=== PATIENT | male | born 1935 | race Caucasian/White ===

== ENCOUNTER → 2017-08-10 | Outpatient (CLI) | payer BC ==
[~2017-08-10] MED LIST: ASPEC81 PO; ATOR10TA82 PO; CARB25TA12 PO; CHOL100010 PO; CLX/20 PO; CRDCD120 PO; CYAN100020 PO; MULT-190 PO; MULT-506 PO; NAPR1TAB48 PO; PRLSR20 PO; PSYL55.43 PO; [UNRECOGNIZED DRUG - CODE] PO
== END | disposition home or self-care (01) ==
LOC: C.LAB 09:44
PROVIDERS: ATTEND Urology
DX: C61 Malignant neoplasm of prostate (principal)

== ENCOUNTER → 2017-10-20 | Outpatient (CLI) | payer BC ==
--- NOTE | 2017-10-20 09:10 | DIAGNOSTIC IMAGING REPORT ---
ULTRASOUND RIGHT UPPER QUADRANT ABDOMEN CLINICAL HISTORY: Weight loss. Abdominal pain. COMPARISON STUDY: No priors. TECHNIQUE: Real-time, grayscale, and color flow sonography of the right upper quadrant of the abdomen was performed. Images are reviewed in the transverse and longitudinal planes. FINDINGS: Liver: The liver is normal in size and echotexture. There is no intrahepatic biliary ductal dilatation. The main portal vein is patent. Scattered hepatic cysts measure up to 1.5 cm. Gallbladder: The gallbladder is normal in appearance. No gallstones are identified. There is no gallbladder wall thickening or pericholecystic fluid. A sonographic Gross's sign is reportedly absent. The common bile duct measures up to 0.4 cm in diameter. Pancreas: Visualized portions of the pancreatic head and body are normal in appearance. Right kidney: Survey images of the right kidney demonstrate normal size and echotexture. There is no hydronephrosis. A 2.1 cm cyst is incidentally noted. Spleen: The spleen is top normal in size and homogeneous in echotexture, measuring 13.0 cm in length. Ascites: None. IMPRESSION: Unremarkable sonographic assessment of the right upper quadrant. No gallstones are identified. Electronically signed by: Vu Leung M.D. 10/20/2017 9:09 AM Dictated Date/Time: 10/20/2017 9:06 AM
== END | disposition home or self-care (01) ==
LOC: C.ULTRBC 08:16
PROVIDERS: ATTEND Family Medicine
DX: R10.9 Unspecified abdominal pain (principal); R63.4 Abnormal weight loss

== ENCOUNTER 2019-02-03 07:17 | Inpatient (IN) ==
--- NOTE | 2019-01-02 09:14 | PAT Medication Instructions ---
Medication Instructions Date of Service January 02, 2019 Home Medications C,E,zinc,copper [id number] [Ocuvite Adult 50 Plus] 1 cap PO BID aspirin 81 mg PO QDL carbidopa-levodopa 2 tab PO QID cholecalciferol (vitamin D3) [Vitamin D3] 2,000 unit PO QDL citalopram 20 mg PO HS donepezil 10 mg PO HS irbesartan 150 mg PO QAM memantine 10 mg PO BID naproxen 375 mg PO Q8H NEEDED polyethylene glycol 3350 [Miralax] 17 g PO QDL ASK your surgeon for instructions aspirin 81 mg PO QDL naproxen 375 mg PO Q8H NEEDED STOP taking 2 weeks before surgery C,E,zinc,copper [id number] [Ocuvite Adult 50 Plus] 1 cap PO BID DO NOT take the morning of surgery cholecalciferol (vitamin D3) [Vitamin D3] 2,000 unit PO QDL irbesartan 150 mg PO QAM polyethylene glycol 3350 [Miralax] 17 g PO QDL Take morning of surgery With a small sip of water, OTHERWISE NOTHING TO EAT OR DRINK AFTER MIDNIGHT: carbidopa-levodopa 2 tab PO QID memantine 10 mg PO BID Take evening before surgery citalopram 20 mg PO HS donepezil 10 mg PO HS carbidopa-levodopa 2 tab PO QID memantine 10 mg PO BID Other Notes If you have any questions please call us at [phone] or [phone] or [phone] or [phone]
--- NOTE | 2019-01-02 11:37 | Anesthesiology Consultation ---
Date of Service January 02, 2019 Assessment & Plan (1) Encounter for pre-operative examination: Chart Review Chart Review: Acceptable Risk for Surgery and Patient seen in Pre Admission Testing Consults Requested none Teaching & Discussion Pre-Anesthesia Teaching/Discussion Notes: Instructed NPO after midnight before surgery, except medications with 15 cc of water. Medication instructions provided according to the PAT guidelines. History Surgery Operation Date: 02/03/19 10:40 Proposed Procedures p Left Total Shoulder Arthroplasty - Carrington Edwards DO Height/Weight Height: 6 ft 2 in Weight: 86 kg Allergies Allergy/AdvReac Type Severity Reaction Status Date / Time metronidazole Allergy Intermediate HIVES Verified 01/02/19 15:08 minocycline Allergy Mild Rash Verified 01/02/19 15:08 oxycodone AdvReac Mild WEIRD Verified 01/02/19 15:08 THOUGHTS/DREAMS;GI UPSET Tetracyclines AdvReac Mild ABD CRAMPS Verified 01/02/19 15:08 & DIARRHEA, LEUKOPENIA Medications Home Medications Medication Instructions Recorded Confirmed Last Taken C,E,zinc,copper [id number] 1 cap PO BID 10/13/18 01/02/19 10/13/18 [Ocuvite Adult 50 Plus] aspirin 81 mg PO QDL 10/13/18 01/02/19 10/13/18 carbidopa-levodopa 2 tab PO QID 10/13/18 01/02/19 10/13/18 cholecalciferol (vitamin D3) 2,000 unit PO QDL 10/13/18 01/02/19 10/13/18 [Vitamin D3] citalopram 20 mg PO HS 10/13/18 01/02/19 10/12/18 donepezil 10 mg PO HS 10/13/18 01/02/19 10/12/18 memantine 10 mg PO QAM 10/13/18 01/02/19 10/13/18 naproxen 375 mg PO BID 10/13/18 01/02/19 Unknown polyethylene glycol 3350 [Miralax] 17 g PO QDL PRN 12/26/18 01/02/19 Unknown irbesartan 150 mg PO QAM 01/02/19 01/02/19 Unknown Past Medical History Medical History Parkinson's disease BALANCE ISSUES Hypertension Lumbar stenosis with neurogenic claudication (05/15/14) Anxiety Depression History of prostate cancer TREATED WITH RADIATION - 11YR AGO Macular degeneration Osteoarthritis Exercise / Class Metabolic Activity III < 4 Walking/Shop/Light housework (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 Can walk short distances only because legs get tired. Denies CP or SOB. Can walk up stairs, but doesn't often because it tires his muscles ou t and fatigues him greatly. ) Past Family History Family History Aunt Family history of diabetes mellitus Other No family history of adverse response to anesthesia Past Surgical History Surgical History History of knee replacement RIGHT AND LEFT H/O right inguinal hernia repair 03/13/13: LMA #4 09/02/11: MAC#3, ETT#8.0, Grade 1 View History of back surgery X3 08/12/15: L5-S1 Laminectomy: MAC#3, ETT#7.5, Grade 2 View 05/15/14: L5-S1 Hemilaminectomy: MAC #3, ETT#8.0, HiLo Oral, Grade 1 View 10/24/09: L4-5 Hemilaminectomy: Piedra, ETT#8.0, Grade 1 View History of colonoscopy History of repair of hiatal hernia X3 Hx of cosmetic surgery LIPOMA FOREHEAD Hx of foot surgery RIGHT Hx of shoulder replacement RIGHT Past Anesthesia History No Hx of Anesthesia Complications and No Family Hx of Anesthesia Complications History of PONV No Hx of PONV and No Hx of Motion Sickness Social History Smoking Status: Former smoker Do You Dip or Chew Tobacco: No Smoking End Date: 1971 Hx Alcohol Use: No Hx Substance Use: No Review of Systems Patient denies chest pain, shortness of breath, dyspnea on exertion, reflux, co ugh, wheezing, palpitations. +Joint Pain (Lower back, shoulder) Physical Exam Vital Signs BP: 171/83 P: 60 R: 16 T: 98.1 SPO2: 100% on RA ENMT Thyromental Distance: > or= 3.5 Finger Breadths (4) Mallampati Class: I Neck normal visual inspection and trachea midline; neck extension not limited Respiratory normal respiratory effort Auscultation: lungs clear to auscultation bilaterally Cardiovascular Rate/Rhythm: regular rate and regular rhythm Heart Sounds: no murmur Vessels: no carotid bruit Neurologic moves all extremities Psychiatric Orientation: alert and oriented x 3 Testing Laboratory Results 01/02/19 12:29 01/02/19 12: PT 11.0 Seconds (9.0-12.0) 01/02/19 12: INR 1.1 (0.9-1.1) 01/02/19 12: APTT 31.2 Seconds (21.0-31.0) H 01/02/19 12:29 Urine Color Yellow 01/02/19 12:29 Urine Appearance Clear (Clear) 01/02/19 12:29 Urine pH 6.5 (4.5-7.5) 01/02/19 12: Ur Specific [place] 1.017 (1.000-1.030) 01/02/19 12:29 Urine Protein Negative (Negative) 01/02/19 12: Urine Glucose (UA) Negative (Negative) 01/02/19 12: Urine Ketones Negative (Negative) 01/02/19 12: Urine Nitrite Negative (Negative) 01/02/19 12:29 Ur Leukocyte Esterase Negative (Negative) 01/02/19 12:29 Electrocardiogram Date: 10/13/18 Findings: + NSR @ (61) and + no change from (08/07/15) Sinus arrhythmia Nonspecific ST and T wave abnormality Chest X-Ray Date: 10/13/18 FINDINGS: Right shoulder arthroplasty is incidentally noted. There is no pneumothorax or pleural effusion. Cardiac mediastinal silhouette is stable. There is no consolidation or evidence for pulmonary edema. The appearance of the chest is unchanged. No acute left rib fractures are identified although sensitivity is diminished given this technique. IMPRESSION: No acute cardiopulmonary findings.
[2019-01-02 15:18] LABS: Basophils # (auto) 0.02 K/uL (0-0.2); Basophils % (auto) 0.4 %; Eosinophils # (auto) 0.16 K/uL (0-0.5); Eosinophils % (auto) 3.1 %; Hematocrit (blood only) 41.6 % (42-52); Hemoglobin 13.5 g/dL (14.0-18.0); Immature Granulocytes # (auto) 0.01 K/uL (0.00-0.02); Immature Granulocytes % (auto) 0.2 %; Lymphocytes # (auto) 0.76 K/uL (1.2-3.4); Lymphocytes % (auto) 14.6 %; Mean Corpuscular Hemoglobin 28.5 pg (25-34); Mean Corpuscular Hgb Conc 32.5 g/dL (32-36); Mean Corpuscular Volume 87.8 fL (80-100); Mean Platelet Volume 9.6 fL (7.4-10.4); Monocytes # (auto) 0.55 K/uL (0.11-0.59); Monocytes % (auto) 10.5 %; Neutrophils # (auto) 3.72 K/uL (1.4-6.5); Neutrophils % (auto) 71.2 %; Platelet Count 153 K/uL (130-400); RDW Standard Deviation 45.4 fL (36.4-46.3); Red Blood Count 4.74 M/uL (4.7-6.1); White Blood Count 5.22 K/uL (4.8-10.8)
[2019-01-02 15:26] LABS: BUN Creatinine Ratio 19.3 (10-20); Calcium 9.4 mg/dl (8.5-10.1); Creatinine Clr Calc Pharmacy 64.8 ml/min; Est GFR (African American) 77.7; Potassium 4.3 mmol/L (3.5-5.1)
[2019-01-02 15:29] LABS: Appearance Urine Clear (Clear); Bilirubin Urine Negative (Negative); Blood Urine Negative (Negative); Color Urine Yellow; Glucose Urine UA Negative (Negative); Ketones Urine Negative (Negative); Leukocyte Esterase Urine Negative (Negative); Nitrite Urine Negative (Negative); Protein Urine Negative (Negative); Specific Gravity Urine 1.017 (1.000-1.030); Urobilinogen Urine Negative (Negative); pH Urine 6.5 (4.5-7.5)
[2019-01-02 15:35] LABS: INR 1.1 (0.9-1.1); Partial Thromboplastin Ratio 1.2; Partial Thromboplastin Time 31.2 Seconds (21.0-31.0)
--- NOTE | 2019-02-03 06:56 | History & Physical Report ---
Date of Service February 03, 2019 Assessment & Plan (1) Osteoarthritis of left shoulder: We will proceed with a left total shoulder arthroplasty. Postoperatively he will be kept overnight in the hospital for postop medical management. He plans to use energy physical therapy upon discharge. Present on Admission?: Yes History of Present Illness Chief Complaint: Primary osteoarthritis of the left shoulder Primary Care Provider: Mike Rose MD Jean is a pleasant 83-year-old male who has been dealing with chronic increasing left shoulder pain. X-rays and clinical examination have been diagnostic for advanced osteoarthritis of the left shoulder. After failing conservative treatment, he has elected to proceed with a left total shoulder arthroplasty. Allergies Allergy/AdvReac Type Severity Reaction Status Date / Time metronidazole Allergy Intermediate HIVES Verified 01/13/19 12:59 minocycline Allergy Mild Rash Verified 01/13/19 12:59 azithromycin [From Zithromax] Allergy Verified 01/25/19 14:18 ketoconazole Allergy Verified 01/25/19 14:18 vardenafil [From Levitra] Allergy Verified 01/25/19 14:18 oxycodone AdvReac Mild WEIRD Verified 01/13/19 12:59 THOUGHTS/DREAMS;GI UPSET Tetracyclines AdvReac Mild ABD CRAMPS Verified 01/13/19 12:59 & DIARRHEA, LEUKOPENIA Home Medications Home Medications Medication Instructions Recorded Confirmed Type Ocuvite Adult 50 Plus 1 cap PO BID 10/13/18 01/13/19 History aspirin 81 mg PO QDL 10/13/18 01/13/19 History cholecalciferol (vitamin D3) 2,000 unit PO QDL 10/13/18 01/13/19 History [Vitamin D3] citalopram 20 mg PO HS 10/13/18 01/13/19 History donepezil 10 mg PO HS 10/13/18 01/13/19 History memantine 10 mg PO QAM 10/13/18 01/13/19 History naproxen 375 mg PO BID 10/13/18 01/13/19 History polyethylene glycol 3350 [Miralax] 17 g PO QDL PRN 12/26/18 01/13/19 History irbesartan 150 mg PO QAM 01/02/19 01/13/19 History atorvastatin 10 mg tablet 10 mg PO DAILY tab 01/25/19 01/25/19 History carbidopa 25 mg-levodopa 100 mg 2 tab PO QID 30 Days #240 tab 01/25/19 01/25/19 Rx tablet diltiazem 120 mg tablet PO .Take 1 tablet daily tab 01/25/19 01/25/19 History psyllium PO 01/25/19 01/25/19 History tamsulosin 0.4 mg capsule 0.4 mg PO DAILY #30 cap 01/25/19 01/25/19 History Past Med/Surg History Medical History Parkinson's disease BALANCE ISSUES Hypertension Lumbar stenosis with neurogenic claudication (05/15/14) Anxiety Depression History of prostate cancer TREATED WITH RADIATION - 11YR AGO Macular degeneration Osteoarthritis Surgical History History of knee replacement RIGHT AND LEFT H/O Mohs micrographic surgery for skin cancer forehead left side H/O right inguinal hernia repair 03/13/13: LMA #4 09/02/11: MAC#3, ETT#8.0, Grade 1 View History of back surgery X3 08/12/15: L5-S1 Laminectomy: MAC#3, ETT#7.5, Grade 2 View 05/15/14: L5-S1 Hemilaminectomy: MAC #3, ETT#8.0, HiLo Oral, Grade 1 View 10/24/09: L4-5 Hemilaminectomy: Piedra, ETT#8.0, Grade 1 View History of colonoscopy History of repair of hiatal hernia X3 Hx of cataract surgery Hx of cosmetic surgery LIPOMA FOREHEAD Hx of foot surgery RIGHT Hx of shoulder replacement RIGHT S/P nasal septoplasty Family History Aunt Family history of diabetes mellitus Father Prostate cancer Meningitis Bone cancer Mother Heart disease Congestive heart failure Brother Skin cancer Heart disease Malignant tumor of optic nerve Other Hypertension No family history of adverse response to anesthesia Social History Preferred Language: Slovak Communication Ability: Effective Mining Consultant Required: No Beliefs That Will Affect Care: None marital status: Current Living Situation: Spouse Other Information That Helps Us Care for You: No Feels Safe at Home: Yes Safety Concerns: Feels Safe At This Time Smoking Status: Former smoker Do You Dip or Chew Tobacco: No ; Smoking End Date: quit 1971 ; Second Hand Exposure: No ; Tobacco Cessation Education Requested by Patient: No Hx Alcohol Use: No Hx Substance Use: No Review of Systems All systems reviewed & are unremarkable except as noted in HPI & below Physical Exam Constitutional: WD/WN, vitals as above Eyes: PERRL, conjunctivae normal, anicteric sclerae ENMT: external ear and nose normal, oropharynx normal Neck: trachea midline, no thyromegaly Respiratory: normal respiratory effort Cardiovascular: RRR, no murmur, no edema Gastrointestinal (Abdomen): normal bowel sounds, soft, nontender, no hepatosplenomegaly Musculoskeletal: Physical examination of the left shoulder reveals decreased range of motion and crepitis throughout. There is good strength with full can testing and external rotation. There is tenderness palpation along the anterior glenohumeral joint line. The right upper extremity is neurovascularly intact. Psychiatric: A+Ox3, euthymic affect Results & Data Diagnostic Findings Radiographs of the left shoulder show osteoarthritis of the glenohumeral joint. There is joint space narrowing, osteophyte formation, and [id number] articulation.
[~2019-02-03 07:17] MED LIST changes: +ACETAMINOPHEN 500 MG TAB PO SCH; -ASPEC81 PO; -ATOR10TA82 PO; +BUPIVACAINE 0.5 % 5 MG/1 ML PF 10ML VIAL ONE; -CARB25TA12 PO; +CEFAZOLIN 2000MG 2,000 MG/15 ML SYR IV SCH; -CHOL100010 PO; -CLX/20 PO; -CRDCD120 PO; -CYAN100020 PO; +FAMOTIDINE 20 MG TAB PO SCH; +GABAPENTIN 300 MG CAP PO SCH; +LR 15ML/HR IV SCH; +LR 60ML/HR IV SCH; -MULT-190 PO; -MULT-506 PO; -NAPR1TAB48 PO; -PRLSR20 PO; -PSYL55.43 PO; +ROPIVACAINE 0.5% HCL/PF 150 MG, BUPIVACAINE 0.5% MPF 30 ML, EPINEPHrine 30MG/30ML (OR U... INSTIL SCH; +TRANEXAMIC ACID 1,000 MG **IV Intra-op IV SCH; +TRANEXAMIC ACID 1,000 MG **IV Pre-op IV SCH; -[UNRECOGNIZED DRUG - CODE] PO
--- NOTE | 2019-02-03 09:14 | History & Physical Bridge Note ---
Date of Service February 03, 2019 History & Physical Bridge Note I have examined the patient, reviewed the History & Physical and in the interval since the performance of the History & Physical I have noted the following changes of clinical significance: no changes noted
[2019-02-03] MEDS ORDERED: ORTHO JOINT ANESTHETIC ONE (09:45)
[2019-02-03] MEDS ORDERED: LIDOCAINE HCL 2% 2 ML VIAL/AMP(20MG/ML) INFIL ONE (09:55)
[2019-02-03] MEDS ORDERED: fentaNYL citrate 100 MCG/2 ML VIAL ONE (09:55)
[2019-02-03] MEDS ORDERED: ROCURONIUM BROMIDE 10 MG/ML 5 ML VIAL ONE (09:55)
[2019-02-03] MEDS ORDERED: MIDAZOLAM HCL 1 MG/ML 2ML VIAL ONE (09:55)
[2019-02-03] MEDS ORDERED: PROPOFOL IV EMULSION 10 MG/ML 20 ML VIAL IV ONE (09:55)
[2019-02-03] MEDS ORDERED: ePHEDrine sulfate 50 MG/ML AMP IV PRN (10:44)
[2019-02-03] MEDS ORDERED: ATROPINE SULFATE 0.1 MG/ML 10ML SYR IV PRN (10:44)
[2019-02-03] MEDS ORDERED: ONDANSETRON INJ 2 MG/ML 2 ML VIAL IV PRN ×2 (10:44→14:09)
[2019-02-03] MEDS ORDERED: fentaNYL citrate 100 MCG/2 ML VIAL IV PRN (10:44)
--- NOTE | 2019-02-03 10:44 | Anesthesiology Consultation ---
Date of Service February 03, 2019 parkinsons htn raymon prostate ca Assessment & Plan (1) Encounter for pre-operative examination: Chart Review Chart Review: Acceptable Risk for Surgery and Patient NOT seen in Pre Admission Testing Consults Requested none ASA ASA3 Proposed Anesthesia Anesthesia Type: General Regional Laterality: Left Site: Interscalene Risk / Benefits Reviewed With: PT / POA / Parent / Guardian, Accepts Plan and Informed Consent Obtained History Surgery Operation Date: 02/03/19 09:55 Proposed Procedures p Left Total Shoulder Arthroplasty - Carrington Edwards DO Height/Weight Height: 6 ft 2 in Weight: 84.55 kg Allergies Allergy/AdvReac Type Severity Reaction Status Date / Time metronidazole Allergy Intermediate HIVES Verified 02/03/19 08:01 minocycline Allergy Mild Rash Verified 02/03/19 08:01 azithromycin [From Zithromax] Allergy Unknown unsure Verified 02/03/19 08:01 ketoconazole Allergy Unknown unsure Verified 02/03/19 08:01 vardenafil [From Levitra] Allergy Unknown Verified 02/03/19 08:01 oxycodone AdvReac Mild WEIRD Verified 02/03/19 08:01 THOUGHTS/DREAMS;GI UPSET Tetracyclines AdvReac Mild ABD CRAMPS Verified 02/03/19 08:01 & DIARRHEA, LEUKOPENIA Medications Home Medications Medication Instructions Recorded Confirmed Last Taken Ocuvite Adult 50 Plus 1 cap PO BID 10/13/18 02/03/19 01/29/19 08:00 aspirin 81 mg PO QDL 10/13/18 02/03/19 01/29/19 12:00 cholecalciferol (vitamin D3) 2,000 unit PO QDL 10/13/18 02/03/19 01/29/19 08:00 [Vitamin D3] citalopram 20 mg PO HS 10/13/18 02/03/19 02/02/19 19:00 donepezil 10 mg PO HS 10/13/18 02/03/19 02/02/19 19:00 memantine 10 mg PO QAM 10/13/18 02/03/19 02/03/19 06:00 naproxen 375 mg PO BID 10/13/18 02/03/19 01/29/19 08:00 polyethylene glycol 3350 [Miralax] 17 g PO QDL PRN 12/26/18 02/03/1919 10:00 irbesartan 150 mg PO QAM 01/02/19 02/03/19 02/01/19 08:00 atorvastatin 10 mg tablet 10 mg PO DAILY tab 01/25/19 02/03/19 02/01/19 08:00 carbidopa 25 mg-levodopa 100 mg 2 tab PO QID 30 Days #240 tab 01/25/19 02/03/19 02/03/19 06:00 tablet diltiazem 120 mg tablet 120 mg PO DAILY tab 01/25/19 02/03/19 02/02/19 08:00 Active Medications Generic Name Dose Route Start Last Admin Trade Name Minnie PRN Reason Stop Dose Admin Acetaminophen 1,000 mg 02/03/19 06:00 02/03/19 08:46 Tylenol PO 02/03/19 18:00 1,000 mg PREOP INDIA Administration Famotidine 20 mg 02/03/19 06:00 02/03/19 08:46 Pepcid PO 02/03/19 18:00 20 mg PREOP [place] Administration Gabapentin 300 mg 02/03/19 06:00 02/03/19 08:46 Neurontin PO 02/03/19 18:00 300 mg PREOP [place] Administration Lactated Ringer's 1,000 mls @ 15 mls/hr 02/03/19 06:00 02/03/19 08:04 Lr IV 02/04/19 05:59 15 mls/hr .Q24H INDIA Administration Lactated Ringer's 1,000 mls @ 60 mls/hr 02/03/19 06:00 02/03/19 08:05 Lr IV 02/03/19 22:39 Not Given .[id number] INDIA NPO Date Last Intake of Fluids: 02/02/19 Time Last Intake of Fluids: 22:00 Last Intake of Fluids Comment: sip with meds this am Date Last Intake of Solids: 02/02/19 Time Last Intake of Solids: 19:00 Past Medical History Medical History Parkinson's disease BALANCE ISSUES Hypertension Lumbar stenosis with neurogenic claudication (05/15/14) Acid reflux (Acute) Anxiety Depression History of prostate cancer TREATED WITH RADIATION - 11YR AGO Macular degeneration Osteoarthritis Exercise / Class Metabolic Activity II 4-5 Yardwork/Stairs/Walk up hill Past Family History Family History Aunt Family history of diabetes mellitus Father Prostate cancer Meningitis Bone cancer Mother Heart disease Congestive heart failure Brother Skin cancer Heart disease Malignant tumor of optic nerve Other Hypertension No family history of adverse response to anesthesia Past Surgical History Surgical History History of knee replacement RIGHT AND LEFT History of back surgery X3 08/12/15: L5-S1 Laminectomy: MAC#3, ETT#7.5, Grade 2 View 05/15/14: L5-S1 Hemilaminectomy: MAC #3, ETT#8.0, HiLo Oral, Grade 1 View 10/24/09: L4-5 Hemilaminectomy: Piedra, ETT#8.0, Grade 1 View History of repair of hiatal hernia X3 Hx of cosmetic surgery LIPOMA FOREHEAD Hx of foot surgery RIGHT Hx of shoulder replacement RIGHT H/O Mohs micrographic surgery for skin cancer forehead left side H/O right inguinal hernia repair 03/13/13: LMA #4 09/02/11: MAC#3, ETT#8.0, Grade 1 View History of colonoscopy Hx of cataract surgery S/P nasal septoplasty Past Anesthesia History No Hx of Anesthesia Complications and No Family Hx of Anesthesia Complications History of PONV No Hx of PONV and No Hx of Motion Sickness Social History Smoking Status: Former smoker Do You Dip or Chew Tobacco: No Smoking End Date: 1971 Hx Alcohol Use: No Hx Substance Use: No substance use type: does not use Physical Exam Vital Signs Last Vital Signs Temp 36.6 C 02/03/19 08:06 Pulse 69 02/03/19 08:06 Resp 20 02/03/19 08:06 BP 169/96 H 02/03/19 08:06 Pulse Ox 98 02/03/19 08:06 ENMT Mouth: no dentition abnormality Thyromental Distance: > or= 3.5 Finger Breadths Mallampati Class: II Neck normal visual inspection Respiratory normal respiratory effort Auscultation: lungs clear to auscultation bilaterally Cardiovascular Rate/Rhythm: regular rate and regular rhythm Psychiatric Orientation: alert Testing Laboratory Results 01/02/19 12:29 01/02/19 12:29 PT 11.0 Seconds (9.0-12.0) 01/02/19 12:29 INR 1.1 (0.9-1.1) 01/02/19 12:29 APTT 31.2 Seconds (21.0-31.0) H 01/02/19 12:29 Urine Color Yellow 01/02/19 12:29 Urine Appearance Clear (Clear) 01/02/19 12:29 Urine pH 6.5 (4.5-7.5) 01/02/19 12:29 Ur Specific [place] 1.017 (1.000-1.030) 01/02/19 12:29 Urine Protein Negative (Negative) 01/02/19 12:29 Urine Glucose (UA) Negative (Negative) 01/02/19 12:29 Urine Ketones Negative (Negative) 01/02/19 12:29 Urine Nitrite Negative (Negative) 01/02/19 12:29 Ur Leukocyte Esterase Negative (Negative) 01/02/19 12:29 Blood Type O Positive 01/02/19 12:29 Antibody Screen NEGATIVE 01/02/19 12:29
[2019-02-03] MEDS ORDERED: HydrALAZINE HCL 20 MG/ML VIAL ONE (11:39)
--- NOTE | 2019-02-03 12:39 | Operative Report ---
Post Operative Report Pre & Post Diagnosis Operation Date: 02/03/19 09:55 Pre-Op Diagnosis: Left Shoulder Degenerative Joint Disease Post-Op Diagnosis: Left Shoulder Degenerative Joint Disease with rotator cuff tear Procedure Operation Date: 02/03/19 09:55 Actual Procedures p Left Reverse Total Shoulder Arthroplasty(Left) - Carrington Edwards DO Surgeon Carrington Edwards DO Heel Packer Carrington Ferreira PAC Estimated Blood Loss 300 Findings Consistent with Post-Op Diagnosis Specimens Left humeral head Complications none Disposition Disposition: Recovery Room Indications Jean cox a pleasant 83-year-old male presented my office with chronic increasing left shoulder pain. X-rays and clinical examination were diagnostic for advanced osteoarthritis of left shoulder. After failing conservative treatment, he elected to proceed with a left shoulder arthroplasty. Description of Procedure Implants used: I used a [employer] Comprehensive reverse total shoulder arthroplasty system with a size 17 press fit mini humeral stem, a +3 offset humeral tray and a standard humeral bearing, a standard baseplate with a 6.5 mm central screw and superior and inferior locking screws, and a size 40 mm +3 eccentric glenosphere. The patient arrived at [facility] for the above procedure. There were seen in the preoperative holding area and the operative extremity was identified and signed. They were given a preoperative antibiotic and an interscalene nerve block. They were taken back to the operating room, laid on table in supine position, and put under general anesthesia. They were then put into the beachchair position. The shoulder was then prepped and draped in sterile fashion. A timeout was done and the patient in the operative extremity was properly identified. A deltopectoral approach was used. Dissection was taken down through the fascia and the deltoid was retracted laterally and the conjoined tendon was retracted medially. The anterior shoulder was exposed. The long head of the biceps tendon was tenodesed to the upper border of the pectoralis major. The upper border the subscapularis was torn and retracted. There was also significant partial-thickness tearing of the supraspinatus and infraspinatus. Decision was made at this time to do a reverse shoulder arthroplasty. The remainder of the subscapularis was then released off the lesser tuberosity with a centimeter of cuff tissue remaining. The inferior capsule was released and the humeral head was dislocated. A canal finding reamer was sent down the center of the humeral canal. Sequential reaming up to a size 17 reamer was done. Off that reamer, a proximal humeral resection guide was placed. The proximal humerus was resected at 135 of inclination and 25 of retroversion. Osteophytes were then removed and the glenoid was exposed. Time was spent doing a complete capsular and labral release. A [employer] signature guide was then attached onto the anterior rim of the glenoid. A 3.2 mm Steinmann pin was then placed in the reverse total shoulder arthroplasty hole. The glenoid baseplate was then reamed. The final size standard baseplate was then impacted in the place. A 6.5 mm central screw was then placed followed by superior and inferior locking screws. A 40 mm +3 eccentric glenoid sphere was then impacted into place. Surrounding soft tissues were then injected with 100 cc an orthopedic pain control cocktail. The proximal humerus was then exposed. Sequential broaching of the humerus up to a size 17 broach was done. Off that broach a +3 offset humeral tray was trialed. The shoulder was then reduced, brought through a full range of motion and felt to be stable. The shoulder was then dislocated and the broach was removed. The final size 17 mini press-fit humeral stem was then impacted into place. A standard humeral bearing was then snapped onto a +3 standard offset humeral tray and the ring-lock mechanism was engaged. The humeral tray was then impacted onto the humeral stem. The shoulder was once again reduced, brought through a full range of motion and felt to be stable. The remainder of the subscapularis was then tenodesed back to the lesser tuberosity with transosseous FiberWire sutures and side to side sutures with the arm in 45 of external rotation. A dilute betadyne lavage was then done for 3 minutes. The joint was then irrigated with normal saline solution. Hemostasis was obtained. The skin was then closed with 2-0 Vicryl, 3-0V lock suture, and alka. A soft dressing and a regular arm sling was placed. The patient was then extubated and transferred to a hospital bed. They were taken to the postanesthesia care unit in stable condition. They tolerated the procedure well. I attest to the content of the Intraoperative Record and any orders documented therein. Any exceptions are noted below.
[2019-02-03] MEDS ORDERED: GLYCOPYRROLATE 0.2 MG/ML VIAL ONE (13:18)
[2019-02-03] MEDS ORDERED: DEXAMETHASONE SOD INJ 4 MG/ML VIAL ONE (13:18)
[2019-02-03] MEDS ORDERED: NEOSTIGMINE METHYLSULFATE 5 MG/5 ML SYR ONE (13:18)
[2019-02-03] MEDS ORDERED: ONDANSETRON INJ 2 MG/ML 2 ML VIAL ONE (13:18)
--- NOTE | 2019-02-03 13:40 | XRay Report ---
XR shoulder LT min 2V routine CLINICAL HISTORY: Post shoulder surgery postoperative COMPARISON: None. DISCUSSION: Anatomic alignment posttotal left shoulder arthroplasty. Could contact between prosthetic and underlying bone. Expected soft tissue postoperative change. IMPRESSION: Anatomic alignment posttotal left shoulder arthroplasty. The above report was generated using voice recognition software. It may contain grammatical, syntax or spelling errors. Electronically signed by: Samuel Hoang M.D. 02/03/2019 1:38 PM
--- NOTE | 2019-02-03 13:57 | Anesthesiology Progress Note ---
Date of Service February 03, 2019 Anesthesia Post Procedure Vital Signs Vital Signs: Temp Pulse Pulse Resp BP Pulse Ox 02/03/19 13:35 36.1 C L 75 16 131/78 94 02/03/19 13:25 77 16 124/72 93 02/03/19 13:15 82 16 120/70 97 02/03/19 13:06 36.1 C L 84 16 165/91 H 99 02/03/19 08:06 36.6 C 69 20 169/96 H 98 Pain Intensity Left Shoulder: Pain Intensity: 5 Transfer of Care Handoff Completed per policy Notes Mental Status: alert / awake / arousable Patient Amnestic to Procedure: Yes Nausea / Vomiting: adequately controlled Pain: adequately controlled Airway Patency, RR, SpO2: stable & adequate BP & HR: stable & adequate Hydration State: stable & adequate Anesthetic Complications: no major complications apparent Notes: Block working well in pacu
[2019-02-03] MEDS ORDERED: HYDROCODONE/ACETAMOPHEN 5/325MG TAB PO PRN (14:09)
[2019-02-03] MEDS ORDERED: BISACODYL 10 MG SUPP PR PRN (14:09)
[2019-02-03] MEDS ORDERED: NALOXONE HCL 0.4 MG/1 ML VIAL/CARP IV PRN (14:09)
[2019-02-03] MEDS ORDERED: HYDROmorphone INJ 0.5 MG/0.5 ML SYR IV PRN (14:09)
[2019-02-03] MEDS ORDERED: METOCLOPRAMIDE HCL INJ 5 MG/ML 2 ML VIAL IV PRN (14:09)
[2019-02-03] MEDS ORDERED: SODIUM CHLORIDE 0.9% 1000ML 1,000 ML IV SCH (14:09)
[2019-02-03] MEDS ORDERED: MAGNESIUM HYDROXIDE SUSP 30 ML UDC PO PRN (14:09)
[2019-02-03] MEDS: KETOROLAC TROMETHAMINE 15 MG/ML VIAL IV SCH ×2 (15:41→20:44)
[2019-02-03] MEDS: ACETAMINOPHEN 500 MG TAB PO SCH ×2 (15:41→23:42)
[2019-02-03] MEDS: CARBIDOPA/LEVODOPA 25/100MG TAB PO SCH ×2 (18:14→20:44)
[2019-02-03] MEDS: CEFAZOLIN 2000MG 2,000 MG/15 ML SYR IV SCH (18:15)
[2019-02-03] MEDS: DOCUSATE SODIUM 100 MG CAP PO SCH (20:44)
[2019-02-03] MEDS ORDERED: SENNA 8.6 MG TAB PO SCH (21:00)
[2019-02-03] MEDS ORDERED: NON-FORMULARY MEDICATION (C,E,Zinc,Copper 11-Omega3s-Lut [Ocuvite Adult 50 Plus] 1 CAP) PO SCH (21:00)
[2019-02-03] MEDS ORDERED: DONEPEZIL HCL 10 MG TAB PO SCH (21:00)
[2019-02-03] MEDS ORDERED: CITALOPRAM 20 MG TAB PO SCH (21:00)
[2019-02-04] MEDS: CEFAZOLIN 2000MG 2,000 MG/15 ML SYR IV SCH (02:57)
[2019-02-04] MEDS: KETOROLAC TROMETHAMINE 15 MG/ML VIAL IV SCH ×2 (03:00→09:12)
[2019-02-04 05:50] LABS: Basophils # (auto) 0.01 K/uL (0-0.2); Basophils % (auto) 0.1 %; Hematocrit (blood only) 35.6 % (42-52); Hemoglobin 11.8 g/dL (14.0-18.0); Immature Granulocytes # (auto) 0.02 K/uL (0.00-0.02); Immature Granulocytes % (auto) 0.2 %; Lymphocytes # (auto) 0.66 K/uL (1.2-3.4); Lymphocytes % (auto) 6.4 %; Mean Corpuscular Hemoglobin 28.3 pg (25-34); Mean Corpuscular Hgb Conc 33.1 g/dL (32-36); Mean Corpuscular Volume 85.4 fL (80-100); Mean Platelet Volume 9.5 fL (7.4-10.4); Monocytes # (auto) 1.04 K/uL (0.11-0.59); Monocytes % (auto) 10.1 %; Neutrophils # (auto) 8.52 K/uL (1.4-6.5); Neutrophils % (auto) 83.2 %; Platelet Count 155 K/uL (130-400); RDW Coefficient of Variation 14.2 % (11.5-14.5); RDW Standard Deviation 44.4 fL (36.4-46.3); Red Blood Count 4.17 M/uL (4.7-6.1); White Blood Count 10.25 K/uL (4.8-10.8)
[2019-02-04 06:15] LABS: BUN Creatinine Ratio 14.5 (10-20); Calcium 8.8 mg/dl (8.5-10.1); Creatinine Clr Calc Pharmacy 45.8 ml/min; Est GFR (African American) 51.1; Est GFR (Non-African American) 44.1
[2019-02-04] MEDS: ACETAMINOPHEN 500 MG TAB PO SCH (08:35)
[2019-02-04] MEDS: DOCUSATE SODIUM 100 MG CAP PO SCH (08:36)
[2019-02-04] MEDS: CARBIDOPA/LEVODOPA 25/100MG TAB PO SCH (08:36)
[2019-02-04] MEDS ORDERED: MEMANTINE HCL 10 MG TAB PO SCH (09:00)
[2019-02-04] MEDS ORDERED: ATORVASTATIN 10 MG TAB PO SCH (09:00)
[2019-02-04] MEDS ORDERED: IRBESARTAN 150 MG TAB PO SCH (09:00)
[2019-02-04] MEDS ORDERED: MULTIVITAMIN TAB PO SCH (09:00)
[2019-02-04] MEDS ORDERED: dilTIAZem HCL 120 MG CAPCR PO SCH (09:00)
--- NOTE | 2019-02-04 09:22 | Orthopedic Progress Note ---
Date of Service February 04, 2019 Assessment & Plan (1) Osteoarthritis of left shoulder: Overall is doing very well. Is not having much pain in the left shoulder. Slight facial droop he has on the left side should resolve with time. He will be seen by physical therapy this morning to do range of motion exercises and ambulation. He can be discharged home later today with tramadol for pain. He will follow-up with orthopedics in 2 weeks. Present on Admission?: Yes Subjective Jean was seen and examined at bedside this morning. Overall is doing very well. He is not having any pain in the left shoulder. He has a little trouble opening up his left eye. He can see out of his left eye okay. He has no other complaints. Physical Exam Musculoskeletal: On physical examination of the left shoulder, the dressing is clean and dry. He is wearing a sling as instructed. His radial, median, and ulnar nerves are checked and intact his wrist. His axillary nerve was not checked yet. He is a slight facial droop on the left side compared to the right. This is new since the surgery. Results & Data Vital Signs (Past 12 Hours) Vital Signs Temp Pulse Resp BP Pulse Ox 02/04/19 07:09 36.7 C 68 17 119/67 96 02/04/19 02:47 36.7 C 65 16 130/70 98 02/03/19 23:29 36.6 C 67 16 130/74 97 Laboratory Results H & H 01/02/19 02/04/19 Range/Units 12:29 05:24 Hgb 13.5 L 11.8 L (14.0-18.0) g/dL Hct 41.6 L 35.6 L (42-52) % Coagulation 01/02/19 Range/Units 12:29 INR 1.1 (0.9-1.1) Diagnostic Findings Postoperative x-rays of the left shoulder show the prosthesis to be in anatomic alignment without any evidence of fracture, dislocation, or loosening. PG Care Time/CCT Total # of Minutes Spent Total Time Spent with Patient: Total time spent is greater than 50% in coordination of care (as documented) at patient's floor/unit and/or counseling patient:
--- NOTE | 2019-02-04 09:23 | Discharge Summary ---
Date of Service February 04, 2019 Admission HPI Per Admitting Provider Jean is a pleasant 83-year-old male who has been dealing with chronic increasing left shoulder pain. X-rays and clinical examination have been diagnostic for advanced osteoarthritis of the left shoulder. After failing conservative treatment, he has elected to proceed with a left total shoulder arthroplasty. Principal Diagnosis Left reverse shoulder arthroplasty Discharge Data Allergies Allergy/AdvReac Type Severity Reaction Status Date / Time metronidazole Allergy Intermediate HIVES Verified 02/03/19 08:01 minocycline Allergy Mild Rash Verified 02/03/19 08:01 azithromycin [From Zithromax] Allergy Unknown unsure Verified 02/03/19 08:01 ketoconazole Allergy Unknown unsure Verified 02/03/19 08:01 vardenafil [From Levitra] Allergy Unknown Verified 02/03/19 08:01 oxycodone AdvReac Mild WEIRD Verified 02/03/19 08:01 THOUGHTS/DREAMS;GI UPSET Tetracyclines AdvReac Mild ABD CRAMPS Verified 02/03/19 08:01 & DIARRHEA, LEUKOPENIA Consultations 02/03/19 14:09 Consult Case Management - Discharge Planning Routine Procedures Performed Operation Date: 02/03/19 09:55 Actual Procedures p Left Reverse Total Shoulder Arthroplasty(Left) - Carrington Edwards DO Ordered Studies 02/03/19 05:00 US - OR guided needle placemen Routine Hospital Course (1) Osteoarthritis of left shoulder: On February 03, 2019 Jean arrived at [facility] and underwent left reverse shoulder arthroplasty without medication. He had a general anesthetic and a left interscalene nerve block. Postoperatively he was placed in a sling and discharged to general orthopedic floors. His hospital course was uneventful. On postop day #1 his H&H was stable and his pain was well controlled. He was able to ambulate well with physical therapy. He was then discharged home with tramadol for pain. He will follow-up with orthopedics in 2 weeks. Total Time Total Time Spent Total Time Spent (In Minutes): 20 Discharge Plan Discharge Items Patient Disposition: Home - Home Health Services Reason For Visit: Left Shoulder Degenerative Joint Disease Discharge Diagnosis: Left reverse shoulder arthroplasty Discharge Goals: Decrease discomfort and Improve function Activity: Per 'Additional Instructions' section Non-emergency contact: Surgeon Call non-emergency contact if: your wound has increased redness and your wound has increased drainage Follow-up/Referrals: Mike Rose MD [Primary Care Provider] - Diet: Regular Addtl Provider Instructions: Activity and Therapy Recommendations: * If you are using [facility] then therapy will be provided at your home until they feel you have accomplished all of your goals. * If you are using [facility] then Physical Therapy will be provided until they feel you are ready to start Outpatient Physical Therapy. * If you are not using home therapy then Outpatient Physical Therapy should start about 3-5 days from your day of surgery. Therapy will last about 8-12 weeks * Wear your sling for 3 weeks, unless otherwise instructed. You may remove your sling to shower and to dress, but otherwise, you should be in your sling at all times, including while sleeping * The shoulder replacement is very stable and you can use your hand while in the sling * You were shown a series of exercises in the hospital. Do these exercises daily including the exercises you were shown in physical therapy. Medications: * Narcotic You will likely be sent home from the hospital with a prescription for the narcotic pain medication that worked best throughout your stay. * Other medications may be prescribed for specific circumstances. If you have any questions, please call the office at . * Resume previous home medications unless otherwise instructed Dressing Care: Leave the plastic dressing in place for 5 days. After 5 days you may remove the plastic dressing. If the incision is not draining then you may leave the alka open to air. If there is a little bit of drainage or if the alka are getting stuck on your clothing then cover the incision with a dry dressing. The alka will be removed at your 2 week follow-up appointment. Showering: You may shower with the plastic dressing in place. Let the shower spray hit the other shoulder. You can pat the plastic dry. If the dressing becomes wet underneath the plastic then simply remove the dressing. Keep the incision dry until you are 5 days out from the day of surgery. At that time you can shower with the alka exposed. Let the soapy shower water run over the alka and pat them dry. Do not scrub or soak the incision. Things To Watch For: * Drainage from the incision site that occurs more than one week after your surgery. * Increased redness at the incision site. * Fever above 102 degrees Fahrenheit. * Unusual chest pain or shortness of breath. * Call [facility] at with any of the above problems Follow-Up Visit: Follow-up with Dr. Edwards 2-3 weeks after your day of surgery. An appointment was probably scheduled when you signed-up for surgery in the office. If you have any questions call Office Instructions: More detailed instructions as well as Frequently Asked Questions were provided in a folder by our office when you signed-up for surgery. Please review these instructions when you get home. If you have any further questions or concerns, please feel free to call the office at [phone] Prescriptions: New tramadol 50 mg tablet 50 mg PO Q6H PRN (Reason: pain) Qty: 30 RF: 0 Continued diltiazem HCl 120 mg tablet 120 mg PO DAILY RF: 0 atorvastatin 10 mg tablet 10 mg PO DAILY RF: 0 carbidopa-levodopa 25-100 mg tablet 2 tab PO QID 30 Days Qty: 240 RF: 5 naproxen 375 mg tablet 375 mg PO BID RF: 0 donepezil 10 mg tablet 10 mg PO HS RF: 0 aspirin 81 mg tablet,delayed release (DR/EC) 81 mg PO QDL RF: 0 citalopram 20 mg tablet 20 mg PO HS RF: 0 memantine 10 mg tablet 10 mg PO QAM RF: 0 cholecalciferol (vitamin D3) [Vitamin D3] 2,000 unit Tablet 2,000 unit PO QDL RF: 0 Ocuvite Adult 50 Plus 250-5-1 mg Capsule 1 cap PO BID RF: 0 irbesartan 300 mg Tablet 150 mg PO QAM RF: 0 polyethylene glycol 3350 [Miralax] 17 gram Powder In Packet 17 g PO QDL PRN (Reason: Constipation) RF: 0 Stand-Alone Forms: Count Includes [facility] Discharge Orders: Discharge Order (Routine); Ordered 02/04/19 Ordered By: Carrington Edwards Admission Data Admit Date/Time: 02/03/19 13:09 Attending Provider: Carrington Edwards Admit Provider: Carrington Edwards Primary Care Provider: Mike Rose Service: Surgical Services
== END 2019-02-04 10:12 | disposition home health service (06) | DRG 483 ==
LOC: ASU 07:17 → 3E 13:09